=== PATIENT | female | born 1955 | race Caucasian/White ===

== ENCOUNTER 2017-04-02 12:08 | Day surgery (SDC) | payer OTHER ==
[2017-04-02 12:15] VITALS: BMI 35.3
--- NOTE | 2017-04-02 12:52 | PDOC ---
Attending Attestation - Resident Resident Name: Bassem Ramírez - ED Attending Attestation I have performed the following: I have examined & evaluated the patient, The case was reviewed & discussed with the resident, I agree w/resident's findings & plan, Exceptions are as noted - HPI HPI: 61 yo F history asthma, DM, HL, hypothyroid presents with L sided abdominal pain x1 day. She states the pain started after she woke up, associated with N/ V. Pain is sharp, nonradiating. SHe has had a recent colonoscopy with Dr. Burkett 3 days ago. - Physicial Exam PE: GENERAL: Awake, alert, and fully oriented, in no acute distress. Appears uncomfortable. EYES: PERRLA, EOMI, sclera anicteric, conjunctiva clear ENT: Auricles normal inspection, hearing grossly normal, nares patent, oropharynx clear without exudates. Dry mucosa NECK: Normal ROM, supple, no lymphadenopathy, JVD, or masses LUNGS: Breath sounds equal, clear to auscultation bilaterally. No wheezes, and no crackles HEART: Regular rate and rhythm, normal S1 and S2, no murmurs, rubs or gallops ABDOMEN: Soft, +LUQ and LLQ tenderness to palpation. Normoactive bowel sounds. +Guarding, +rebound. No masses EXTREMITIES: Normal range of motion, no edema. No clubbing or cyanosis. No cords, erythema, or tenderness NEUROLOGICAL: Cranial nerves II through XII grossly intact. Normal speech, normal gait SKIN: Warm, Dry, normal turgor, no rashes or lesions noted. - Medical Decision Making Pt is 3 days s/p colonoscopy, now with abrupt onset L-sided abdominal pain. + Significant tenderness to palpation. Will obtain labs, CT to t/o perf.
--- NOTE | 2017-04-02 13:01 | PDOC ---
History of Present Illness <Peg Mendoza - Last Filed: 04/02/17 16:09> - General History Source: Patient, Family, Layout Designer Used (Family at bedside) Exam Limitations: Language Barrier - History of Present Illness Initial Comments: 04/02/17 12:56 The patient is a 61F with a PMH of asthma, DM, HLD, and hypothyroidism who presents to the ED with pain on her L side. Her daughter was at bedside providing the history because the patient does not speak Macedonian. The pain started this morning after she woke up. She was able to have a soup broth but states that this pain is uncontrollable. The pain is only L sided, described as pulsating and sharp. It does not radiate anywhere. The patient had a colonoscopy on Wednesday with Dr. Keita. PSH: cholecystectomy in 2004 Social: does not smoke, drink, or use recreational drugs Allergies: Sodium chloride <Bassem Ramírez - Last Filed: 04/02/17 19:22> - General Chief Complaint: Pain Stated Complaint: VOMITING/Abd pain/Colonoscopy done Wednesday Time Seen by Provider: 04/02/17 12:36 Past History <Peg Mendoza - Last Filed: 04/02/17 16:09> - Past Medical History Asthma: Yes Diabetes: Yes GI Disorders: Yes (reflux) Hypercholesterolemia: Yes Thyroid Disease: Yes (HYPO.) Other medical history: arthritis, low vitamin D - Surgical History Abdominal Surgery: Yes Cholecystectomy: Yes - Psycho/Social/Smoking Cessation Hx Anxiety: No Suicidal Ideation: No Smoking Status: No Smoking History: Never smoked Number of Cigarettes Smoked Daily: 0 Information on smoking cessation initiated: No Hx Alcohol Use: No Drug/Substance Use Hx: No Substance Use Type: None <Bassem Ramírez - Last Filed: 04/02/17 19:22> - Past Medical History Allergies/Adverse Reactions: Allergies Allergy/AdvReac Type Severity Reaction Status Date / Time No Known Drug Allergies Allergy Verified 04/02/17 16:05 floride Allergy Intermediate Swelling Uncoded 04/02/17 15:48 Home Medications: Ambulatory Orders Levothyroxine [Synthroid] 50 mcg PO DAILY 05/13/12 Metformin HCl [Glucophage] 1,000 mg PO BID 05/13/12 Aspirin [ASA -] 81 mg PO DAILY 06/24/15 Baclofen 10 mg PO Q8H PRN 06/24/15 Esomeprazole Mag Trihydrate [Nexium] 40 mg PO DAILY 06/24/15 Paroxetine HCl [Paxil -] 20 mg PO DAILY 06/24/15 Ramipril [Altace] 10 mg PO DAILY 06/24/15 Rosuvastatin Calcium [Crestor] 20 mg PO HS 06/24/15 Review of Systems - Review of Systems Able to Perform ROS?: Yes Is the patient limited Macedonian proficient: Yes Constitutional: Yes: Chills. No: Fever ABD/GI: Yes: Diarrhea, Nausea, Vomiting (NBNB) : No: Dysuria, Discharge <Bassem Ramírez - Last Filed: 04/02/17 19:22> *Physical Exam - Vital Signs Last Vital Signs Temp Pulse Resp BP Pulse Ox 98 F 78 20 124/69 99 04/02/17 15:50 04/02/17 15:50 04/02/17 15:50 04/02/17 15:50 04/02/17 12:12 <Peg Mendoza - Last Filed: 04/02/17 16:09> - Vital Signs Last Vital Signs Temp Pulse Resp BP Pulse Ox 98.5 F 90 18 147/78 99 04/02/17 12:12 04/02/17 12:12 04/02/17 12:12 04/02/17 12:12 04/02/17 12:12 - Physical Exam General Appearance: Yes: Nourished, Appropriately Dressed, Mild Distress Respiratory/Chest: positive: Lungs Clear, Normal Breath Sounds. negative: Chest Tender, Accessory Muscle Use Cardiovascular: positive: Regular Rhythm, Regular Rate, S1, S2 Gastrointestinal/Abdominal: positive: Normal Bowel Sounds, Tender, Flat, Soft, Tenderness, Other (Tenderness on L side of abdomen). negative: Distended, Guarding Integumentary: positive: Normal Color, Dry, Warm, Swelling (in b/l lower extremities) Neurologic: positive: Normal Mood/Affect <Bassem Ramírez - Last Filed: 04/02/17 19:22> ED Treatment Course - LABORATORY CBC & Chemistry Diagram: 04/02/17 12:15 04/02/17 12:15 - ADDITIONAL ORDERS Additional order review: Laboratory Results 04/02/17 04/02/17 04/02/17 15:05 12:15 12:15 INR Sodium Potassium Chloride Carbon Dioxide Anion Gap BUN Creatinine Creat Clearance w eGFR Random Glucose Lactic Acid 1.7 Calcium Total Bilirubin AST ALT Alkaline Phosphatase Total Protein Albumin Lipase Blood Type O POSITIVE O POSITIVE Antibody Screen Negative 04/02/17 04/02/17 12:15 12:15 INR 0.92 Sodium 140 Potassium 3.9 Chloride 102 Carbon Dioxide 29 Anion Gap 9 BUN 20 H Creatinine 0.8 D Creat Clearance w eGFR > 60 Random Glucose 144 H Lactic Acid Calcium 9.1 Total Bilirubin 0.3 AST 19 D ALT 19 Alkaline Phosphatase 110 D Total Protein 6.8 Albumin 3.6 Lipase 91 Blood Type Antibody Screen 04/02/17 12:15 RBC 4.54 MCV 84.0 MCHC 32.6 RDW 14.1 MPV 8.0 Neutrophils % 79.1 Lymphocytes % 14.0 Monocytes % 5.4 Eosinophils % 1.1 Basophils % 0.4 - RADIOLOGY Radiology Studies Ordered: Category Date Time Status ABDOMEN & PELVIS CT W/O CONTR [CT] Stat CT Scan 04/02/17 13:05 Completed - Medications Given in the ED: ED Medications Discontinued Medications Generic Name Dose Route Start Last Admin Trade Name Freq PRN Reason Stop Dose Admin Oxycodone/Acetaminophen 1 combo 04/02/17 12:49 04/02/17 12:57 Percocet 5/325 - PO 04/02/17 12:50 1 combo ONCE ONE Administration Oxycodone/Acetaminophen 1 combo 04/02/17 15:58 04/02/17 16:03 Percocet 5/325 - PO 04/02/17 15:59 1 combo ONCE ONE Administration Sodium Chloride 1,000 ml 04/02/17 15:44 04/02/17 15:53 Normal Saline - IV 04/02/17 15:45 1,000 ml ONCE ONE Administration <Peg Mendoza - Last Filed: 04/02/17 16:09> - LABORATORY CBC & Chemistry Diagram: 04/02/17 12:15 04/02/17 12:15 <Bassem Ramírez - Last Filed: 04/02/17 19:22> Medical Decision Making - Medical Decision Making 04/02/17 13:06 Patient is a 61F with a PMH of asthma, DM, HLD, and hypothyroidism s/p colonoscopy 3 days ago who presents with L sided pain. The patient is not peritoneal but is clearly in distress. Vitals are currently stable. I have ordered labs and will scan her abdomen/pelvis to look for perforation or other pathology. 04/02/17 15:29 CT showed 4x4.5mm obstructing stone. I have spoken with Dr. Jc who would like to stent the stone later today. 04/02/17 15:43 Dr. Jc is on board with stenting the stone. Family has been updated. I will do pain control and pre-op labs. 04/02/17 19:21 Patient signed out to night team (Dr. Read). <Bassem Ramírez - Last Filed: 04/02/17 19:22> *DC/Admit/Observation/Transfer - Discharge Dispostion Admit: Yes <Peg Mendoza - Last Filed: 04/02/17 16:09> <Bassem Ramírez - Last Filed: 04/02/17 19:22> Diagnosis at time of Disposition: Kidney stones - Discharge Dispostion Condition at time of disposition: Stable - Referrals
[2017-04-02 13:12] LABS: BASOPHIL 0.4 % (0-2.0); EOSINOPHIL 1.1 % (0-4.5); MCH 27.4 pg (25.7-33.7); MCHC 32.6 g/dl (32.0-36.0); NEUTROPHILS 79.1 % (42.8-82.8); PLATELET COUNT 316 K/MM3 (134-434); RDW 14.1 % (11.6-15.6); WHITE BLOOD COUNT 11.5 K/mm3 (4.0-10.0)
[2017-04-02 13:27] LABS: INR 0.92 (0.82-1.09); PROTHROMBIN TIME (PATIENT) 10.1 SEC (9.98-11.88)
[2017-04-02 13:49] LABS: ALBUMIN 3.6 g/dl (3.4-5.0); ALK PHOS 110 U/L (45-117); ANION GAP 9 (8-16); BILIRUBIN,TOTAL 0.3 mg/dL (0.2-1.0); CALCIUM 9.1 mg/dL (8.5-10.1); CO2 29 mmol/L (21-32); CREATININE 0.8 mg/dL (0.55-1.02); GLUCOSE,RANDOM 144 mg/dL (74-106); SGOT/AST 19 U/L (15-37); SGPT/ALT 19 U/L (12-78); TOT PROT 6.8 g/dl (6.4-8.2)
[2017-04-02] MEDS ORDERED: SODIUM CHLORIDE 0.9% 1000 ML INFUS.BAG IV ONE (15:44)
[2017-04-02 17:16] LABS: URINE APPEARANCE CLEAR; URINE BILIRUBIN NEGATIVE (NEGATIVE); URINE BLOOD 3+ (NEGATIVE); URINE COLOR YELLOW; URINE GLUCOSE (UA) NEGATIVE (NEGATIVE); URINE KETONE TRACE (NEGATIVE); URINE LEUK ESTERASE NEGATIVE (NEGATIVE); URINE NITRITE NEGATIVE (NEGATIVE); URINE UROBILINOGEN NEGATIVE mg/dL (0.2-1.0)
[2017-04-02 17:43] LABS: URINE PROTEIN 1+ (NEGATIVE)
[2017-04-02 17:52] LABS: URINE MUCUS RARE; URINE RBC 104 /hpf (0-3); URINE WBC 7 /hpf (3-5)
[2017-04-02] MEDS ORDERED: morphine CARPU-JECT 4 MG/1 ML DISP.SYRIN IVPUSH ONE (20:45)
[2017-04-02] MEDS ORDERED: morphine CARPU-JECT 4 MG/1 ML DISP.SYRIN ONE (20:46)
--- NOTE | 2017-04-02 20:59 | HP ---
Satellite [facility] - Chief Complaint Chief Complaint: L flank and abd pain History of Present Illness: 61 yo f pres to ED c/o sudden onset severe L flank/ abd pain assoc w N, V found to have a 4 mm obstructing L proximal ureteral calculus w hydro. History Source: Patient, Family Member, Medical Record Limitations to Obtaining History: No Limitations - Past Medical History Allergies/Adverse Reactions: Allergies Allergy/AdvReac Type Severity Reaction Status Date / Time No Known Drug Allergies Allergy Verified 04/02/17 19:56 floride Allergy Intermediate Swelling Uncoded 04/02/17 15:48 "IV Narcotic" Allergy Hives Uncoded 04/02/17 19:43 Cardiovascular: Yes: HTN, Hyperlipdemia Pulmonary: Yes: Asthma Endocrine: Yes: Diabetes Mellitus, Hypothyroidism - Current Medications Current Medications: Home Medications Medication Instructions Recorded Levothyroxine [Synthroid] 50 mcg PO DAILY 05/13/12 Metformin HCl [Glucophage] 1,000 mg PO BID 05/13/12 Aspirin [ASA -] 81 mg PO DAILY 06/24/15 Baclofen 10 mg PO Q8H PRN 06/24/15 Esomeprazole Mag Trihydrate 40 mg PO DAILY 06/24/15 [Nexium] Paroxetine HCl [Paxil -] 20 mg PO DAILY 06/24/15 Ramipril [Altace] 10 mg PO DAILY 06/24/15 Rosuvastatin Calcium [Crestor] 20 mg PO HS 06/24/15 Satellite Physical Exam - Physical Examination Vital Signs: Vital Signs Period Temp Pulse Resp BP Sys/Lewis Pulse Ox Last 24 Hr 98 F-98.9 F 78-90 18-20 124-150/69-79 99-99 General Appearance: Well Nourished, Well Developed, Alert & Oriented x3, Obese Abdomen: Soft Pelvic Exam: Within normal limits External Genitalia Satellite Impression/Plan - Impression/Plan Impression: obstructing 4 mm L proximal ureteral calculus, L hydro Operative Procedure: cystoscopy and L JJ stent insertion Date to be Performed: 04/02/17
[2017-04-02] MEDS ORDERED: MIDAZOLAM HCL 2 MG/2 ML SINGLE DOSE VIAL ONE (21:08)
[2017-04-02] MEDS ORDERED: ceFAZolin SODIUM 1 GM VIAL IVPB ONE (21:18)
[2017-04-02] MEDS ORDERED: ceFAZolin SODIUM 1 GM VIAL ONE (21:19)
[2017-04-02] MEDS ORDERED: DEXAMETHASONE SOD PHOSPHATE 4 MG/1 ML VIAL ONE (21:21)
[2017-04-02] MEDS ORDERED: KETOROLAC TROMETHAMINE 30 MG/1 ML VIAL ONE (21:27)
--- NOTE | 2017-04-02 21:34 | OP ---
Operative Note - Note: Operative Date: 04/02/17 Pre-Operative Diagnosis: L ureteral calculus, L hydronephrosis Operation: cysto L JJ stent insertion Findings: L hydro, L ureteral calculus Surgeon: Anthony Jc Anesthesiologist/NEGATIVE TURNER: Chance Lopez Anesthesia: General Drains & Tubes with Location: 6 fr 24 cm L JJ Operative Report Dictated: Yes
[2017-04-02] MEDS ORDERED: ACETAMINOPHEN 1000 MG/100 ML VIAL (NON FORMULARY) IVPB ONE (21:44)
[2017-04-02] MEDS ORDERED: LACTATED RINGERS SOLUTION 1,000 ML IV SCH (21:45)
[2017-04-03] MEDS: oxyCODONE HCL 5 MG TABLET PO PRN ×2 (01:16→08:17)
[2017-04-03 08:31] VITALS: BP 122/75; PULSE 68; TEMP 98
--- NOTE | 2017-04-05 09:40 | EKG ---
Test Reason : Blood Pressure : / mmHG Vent. Rate : 083 BPM Atrial Rate : 083 BPM P-R Int : 176 ms QRS Dur : 084 ms QT Int : 384 ms P-R-T Axes : 032 049 009 degrees QTc Int : 451 ms NORMAL SINUS RHYTHM NORMAL ECG WHEN COMPARED WITH ECG OF 24-JUN-2015 19:20, NO SIGNIFICANT CHANGE WAS FOUND Confirmed by JAKE RICO MD ([id number]) on 04/05/2017 9:40:01 AM Referred By: Confirmed By:JAKE RICO MD
--- NOTE | 2017-04-05 10:11 | OP ---
DATE OF OPERATION: 04/02/2017 PREOPERATIVE DIAGNOSES: 1. Left hydronephrosis. 2. Left ureteral calculus. POSTOPERATIVE DIAGNOSES: 1. Left hydronephrosis. 2. Left ureteral calculus. PROCEDURE: Cystoscopy, left double J stent insertion. SURGEON: Anthony Jc MD CORE WINDER MACHINE OPERATOR: None. ANESTHESIA: General via laryngeal mask. ANESTHESIOLOGIST: John. SPECIMENS: None. CULTURES: None. DRAINS: A 6-Qatari 24-cm left double J stent. ESTIMATED BLOOD LOSS: None. COMPLICATIONS: None. DESCRIPTION OF PROCEDURE: The patient was brought into the operating room and placed on the operating room table in the supine position. After administration of intravenous antibiotics, general anesthesia was administered via laryngeal mask. The patient was placed in the dorsal lithotomy position, and the vagina and perineum were prepped and draped in the usual sterile manner. A 22-Qatari cystoscope was inserted into the bladder with the obturator in place. The obturator was removed, and urine was evacuated. A 33 telescope was inserted, and cystoscope was performed. There were no foreign bodies, tumors, stones, inflammation. Both ureteral orifices were in the usual location with diminished efflux in the left ureteral orifice. The left ureteral orifice was cannulated with a 0.038 guidewire, which was advanced to the level of the left renal pelvis under direct visual and fluoroscopic guidance. Now dual-lumen catheter was inserted. Retrograde pyelogram was done and demonstrated mild left hydronephrosis and a radiolucent left proximal ureteral calculus. Now the dual-lumen catheter was removed, and a 6-Qatari 24-cm double J stent was inserted over the guidewire under direct visual and fluoroscopic guidance leaving 1 coil in the renal pelvis and 1 coil in the bladder. The bladder was emptied. Cystoscope removed. She tolerated the procedure well and transferred to recovery room in stable condition. Liz [id number]
== END 2017-04-03 10:20 | disposition home or self-care (01) ==
LOC: JER 12:08 → JASUSAT 16:09 → J8W 19:50 → JASUSAT 04-03 10:20
PROVIDERS: ATTEND Urology
PROC: 0T778DZ Dilation of Left Ureter with Intraluminal Device, Via Natural or Artificial Opening Endoscopic (ICD-10-PCS; principal; 2017-04-02 16:30)
DX: N13.2 Hydronephrosis with renal and ureteral calculous obstruction (principal)
CPT/HCPCS: 36415; 74176-TC; 80053; 81003; 81015; 83605; 83690; 85025; 85610; 86850; 86900; 86901; 93005; 93010; 94760; 99284-25

== ENCOUNTER 2017-04-08 05:29 | Day surgery (SDC) | payer OTHER ==
[2017-04-05 13:36] VITALS: BMI 39.4
--- NOTE | 2017-04-08 14:02 | HP ---
History & Physical Update - History History: No Change - Physical Physical: No Change - Assessment Assessment: No Change - Plan Plan: No Change
--- NOTE | 2017-04-08 14:04 | OP ---
Operative Note - Note: Operative Date: 04/08/17 Pre-Operative Diagnosis: L ureteral calculus Operation: L ureteroscopsy and L JJ stent change Findings: L ureteral calculus Post-Operative Diagnosis: Same as Pre-op (passed L ureteral calculus) Surgeon: Anthony Jc Anesthesiologist/OPHTHALMIC PATHOLOGIST: Katharine Hyde Anesthesia: General Specimens Removed: L JJ stent Estimated Blood Loss (mls): 0 Drains & Tubes with Location: 6 fr 24 cm L JJ stent Operative Report Dictated: Yes
[2017-04-08] MEDS ORDERED: LIDOCAINE HCL/PF 2% SDV 5ML VIAL ONE (14:10)
[2017-04-08] MEDS ORDERED: MIDAZOLAM HCL 2 MG/2 ML SINGLE DOSE VIAL ONE (14:11)
[2017-04-08] MEDS ORDERED: PROPOFOL 20 ML ONE ×3 (14:11→14:15)
[2017-04-08] MEDS ORDERED: ceFAZolin SODIUM 1 GM VIAL IVPB ONE (14:33)
[2017-04-08] MEDS ORDERED: DEXAMETHASONE SOD PHOSPHATE 4 MG/1 ML VIAL ONE (14:47)
[2017-04-08] MEDS ORDERED: ONDANSETRON 4 MG/2 ML VIAL IVPUSH PRN (15:14)
[2017-04-08] MEDS ORDERED: ACETAMINOPHEN 1000 MG/100 ML VIAL (NON FORMULARY) IVPB PRN (15:15)
[2017-04-08] MEDS ORDERED: LACTATED RINGERS SOLUTION 1,000 ML IV SCH (15:15)
[2017-04-08] MEDS ORDERED: IBUPROFEN 600 MG TABLET (FP) PO ONE (16:30)
[2017-04-08] MEDS ORDERED: ONDANSETRON 4 MG/2 ML VIAL ONE (16:47)
[2017-04-08] MEDS ORDERED: ONDANSETRON 4 MG/2 ML VIAL IVPB ONE (17:00)
[2017-04-08 17:49] VITALS: TEMP 98
[2017-04-08 18:57] VITALS: BP 124/75; PULSE 75
--- NOTE | 2017-04-10 08:39 | OP ---
DATE OF OPERATION: 04/08/2017 PREOPERATIVE DIAGNOSIS: Left ureteral calculus. POSTOPERATIVE DIAGNOSIS: Left ureteral calculus (passed left ureteral calculus). PROCEDURE: Cystoscopy, left ureteroscopy, double J stent change. SURGEON: Anthony Richardson MD STORE WORKER: None. ANESTHESIA: General via laryngeal mask. ANESTHESIOLOGIST: Barrett. SPECIMENS: Left double-J stent. CULTURES: None. DRAINS: A 6-Tongan 24-cm left double J stent. ESTIMATED BLOOD LOSS: None. COMPLICATIONS: None. DESCRIPTION OF PROCEDURE: The patient was brought into the operating room and placed on the operating room table in the supine position. After administration of general anesthesia via laryngeal mask, IV antibiotics were administered, and the vagina and perineum were prepped and draped in the usual sterile manner. A 22-Tongan cystoscope was inserted into the bladder with the obturator in place. The obturator was removed, and urine was evacuated. The 30-degree telescope was inserted, and cystoscopy was performed. This demonstrated no tumors or stones. There was some inflammation related to the left double-J stent. Left double-J stent was grasped at its tip and brought to the urethral meatus. It was not cannulated with a 0.038 guidewire, which was advanced to the level of the left renal pelvis under fluoroscopic guidance. The left double-J stent was now removed and sent to Pathology as specimen. The ureteroscope was then inserted alongside the guidewire to the level of the proximal ureter, and no stone was seen. Now it is possible that the stone had been pushed up into the kidney during stent insertion, so the decision was made to do a flexible ureteroscopy. Now the rigid ureteroscope was removed. Dual lumen catheter was inserted over the guidewire, and a 2nd guidewire Super Stiff was placed to the level of the renal pelvis under fluoroscopic guidance. Now the navigator ureteral access sheath was inserted over the Super Stiff guidewire at the level of the left renal pelvis under fluoroscopic guidance. The obturator was removed with Super Stiff guidewire. The flexible ureteroscope was now inserted through the navigator ureteral access sheath to the level of the left renal pelvis under fluoroscopic guidance. Now under direct vision, the entire renal collecting system on the left side was inspected. No stone was seen. Now the entire course of the ureter was inspected upon withdrawal of the navigator and ureteroscope in tandem. Retrograde pyelogram was done and demonstrated no extravasation of contrast and no hydronephrosis. Left double-J stent was now inserted over the guidewire under fluoroscopic guidance leaving 1 coil in the renal pelvis and 1 coil in the bladder. The stent position was confirmed with cystoscopy, and the bladder was emptied. Cystoscope was removed, and the stent was secured to the thigh with a suture and a Tegaderm. She tolerated the procedure well and transferred to the recovery room in stable condition. ANTHONY RICHARDSON M.D. [id number]
== END 2017-04-08 18:45 | disposition home or self-care (01) ==
LOC: JASU-SURG 05:29
PROVIDERS: ATTEND Urology
PROC: 0T778DZ Dilation of Left Ureter with Intraluminal Device, Via Natural or Artificial Opening Endoscopic (ICD-10-PCS; principal; 2017-04-08 14:00)
DX: N20.1 Calculus of ureter (principal)
CPT/HCPCS: 76000-TC; 94760